=== PATIENT | male | born 1975 | race Caucasian/White ===

== ENCOUNTER 2017-06-28 10:08 | Emergency (ER) | payer MEDICAID ==
[~2017-06-28] VITALS: Ht 193 cm; Wt 120.5 kg
[~2017-06-28 10:08] MED LIST: NO HOME MEDICATIONS; ZYPREXA ZYDIS15 MG PO; ZYPREXA7.5 MG PO
[2017-06-28 10:16] VITALS: BP 126/73; PULSE 86; TEMP 99
[2017-06-28] MEDS ORDERED: ZESTRIL 20MG TA20 MG PO (10:41)
[2017-06-28] MEDS ORDERED: HCTZ12.5TAB PO (10:41)
[2017-06-28] MEDS ORDERED: ATARAX50 MG PO (10:41)
[2017-06-28] MEDS ORDERED: RISPERDAL3 MG PO (10:42)
[2017-06-28] MEDS ORDERED: ZYPREXA 5MG5 MG PO (10:42)
[2017-06-28] MEDS ORDERED: ZOCOR 40MG40 MG PO (10:42)
== END 2017-06-28 11:05 | disposition home or self-care (01) ==
LOC: COL.ER 10:08
DX: S92.525A Nondisplaced fracture of middle phalanx of left lesser toe(s), initial encounter for closed fracture (principal); F20.9 Schizophrenia, unspecified; W22.8XXA Striking against or struck by other objects, initial encounter

== ENCOUNTER 2017-07-10 15:10 | Emergency (ER) | payer MEDICAID ==
[~2017-07-10] VITALS: Ht 193 cm; Wt 127.3 kg
[~2017-07-10 15:10] MED LIST changes: +ATARAX50 MG PO; +HCTZ12.5TAB PO; +RISPERDAL3 MG PO; +ZESTRIL 20MG TA20 MG PO; +ZOCOR 40MG40 MG PO; +ZYPREXA 5MG5 MG PO
[2017-07-10 15:12] VITALS: BP 132/79; TEMP 97.5
[2017-07-10] MEDS ORDERED: MOBIC 7.5MG7.5 MG PO (15:59)
[2017-07-10] MEDS ORDERED: FLEXERIL 1010 MG/TAB PO (15:59)
[2017-07-10 16:24] VITALS: PULSE 80
== END 2017-07-10 16:25 | disposition home or self-care (01) ==
LOC: COL.ER 15:10
DX: S39.012A Strain of muscle, fascia and tendon of lower back, initial encounter (principal); I10 Essential (primary) hypertension; E78.5 Hyperlipidemia, unspecified; F20.9 Schizophrenia, unspecified; F17.290 Nicotine dependence, other tobacco product, uncomplicated; Z90.89 Acquired absence of other organs; X50.1XXA Overexertion from prolonged static or awkward postures, initial encounter
CPT/HCPCS: J1885

== ENCOUNTER 2017-11-21 14:32 | Emergency (ER) | payer MEDICARE, MEDICAID ==
[~2017-11-21 14:32] MED LIST changes: +FLEXERIL 1010 MG/TAB PO; +MOBIC 7.5MG7.5 MG PO
[2017-11-21 15:51] LABS: BASO % 0.3 % (0.0-2.0); GRAN # 6.9 (1.4-6.5); GRAN % 67.6 % (42.2-75.2); HEMATOCRIT 40.5 % (42.0-52.0); HEMOGLOBIN 12.8 g/dl (13.5-18.0); LYMPH # 2.5 (1.2-3.4); LYMPH % 24.8 % (20.0-51.0); MEAN CELL VOLUME 89 fl (80.0-100.0); MEAN CORPUSCULAR HEMOGLOBIN 28 pg (27.0-31.0); MEAN CORPUSCULAR HGB CONC 32 g/dl (33.0-37.0); MEAN PLATELET VOLUME 10.2 fl (7.4-10.4); MONO # 0.7 (0.1-0.6); MONO % 6.8 % (1.7-9.3); PLATELET COUNT 282 K/mm3 (130-400); RED BLOOD COUNT 4.53 M/mm3 (4.20-5.60)
[2017-11-21 16:05] LABS: ACETAMINOPHEN < 10 ug/mL (10-30); ALANINE AMINOTRANSFERASE 45 U/L (21-72); ALBUMIN 4.6 gm/dL (3.5-5.0); ALCOHOL(ethanol),MEDICAL < 10 mg/dL; ALKALINE PHOSPHATASE 125 U/L (50-136); ANION GAP 10 mmol/L (7-16); AST,SGOT 29 U/L (15-37); BILIRUBIN,TOTAL 0.3 mg/dL (0.0-1.0); BLOOD UREA NITROGEN 14 mg/dL (9-20); CALCIUM 9.6 mg/dL (8.4-10.2); CARBON DIOXIDE 28 mmol/L (22-30); CHLORIDE 103 mmol/L (98-107); CREATININE, serum 0.85 mg/dL (0.66-1.25); GLUCOSE 123 mg/dL (74-106); POTASSIUM 4.3 mmol/L (3.4-5.0); SALICYLATE < 1.0 mg/dL; SODIUM 142 mmol/L (137-145); TOTAL PROTEIN 7.9 gm/dL (6.4-8.2)
[2017-11-21 16:42] LABS: COLLECTION METHOD CLEAN CATCH
[2017-11-21 16:48] LABS: PH 5 (5-8); SQUAMOUS EPITHELIAL 0-2 /hpf; URINE APPEARANCE Clear; URINE BACTERIA None Seen /hpf; URINE BILIRUBIN Negative (NEGATIVE); URINE BLOOD Negative (NEGATIVE); URINE COLOR Yellow; URINE GLUCOSE Negative (NEGATIVE); URINE KETONE Negative (NEGATIVE); URINE LEUKOCYTE ESTERASE Negative (NEGATIVE); URINE NITRATE Negative (NEGATIVE); URINE PROTEIN(semi-quant) Negative (NEGATIVE); URINE RBC 0-2 /hpf; URINE UROBILINOGEN Negative (NEGATIVE)
[2017-11-21 17:14] LABS: TRICYCLIC ANTIDEPRESS URINE NEGATIVE
[2017-11-23 06:17] VITALS: TEMP 98.2
[2017-11-23 07:47] VITALS: BP 152/62
[2017-11-23 09:57] VITALS: PULSE 86
== END 2017-11-23 09:59 ==
LOC: COL.ER 14:32
PROVIDERS: Emergency Medicine
DX: F23 Brief psychotic disorder (principal); F32.9 Major depressive disorder, single episode, unspecified; I10 Essential (primary) hypertension; F41.9 Anxiety disorder, unspecified
CPT/HCPCS: A4216; J3486

== ENCOUNTER 2018-03-26 12:31 | Emergency (ER) | payer OTHER ==
[~2018-03-26] VITALS: Ht 193 cm; Wt 105.9 kg
[2018-03-26 12:35] VITALS: PULSE 87; TEMP 97.7
[2018-03-26 13:03] LABS: BASO % 0.4 % (0.0-2.0); GRAN # 4.7 (1.4-6.5); GRAN % 64.1 % (42.2-75.2); HEMATOCRIT 44.6 % (42.0-52.0); HEMOGLOBIN 13.9 g/dl (13.5-18.0); LYMPH % 26.9 % (20.0-51.0); MEAN CELL VOLUME 90 fl (80.0-100.0); MEAN CORPUSCULAR HEMOGLOBIN 28 pg (27.0-31.0); MEAN CORPUSCULAR HGB CONC 31 g/dl (33.0-37.0); MEAN PLATELET VOLUME 10.9 fl (7.4-10.4); MONO # 0.6 (0.1-0.6); MONO % 8.5 % (1.7-9.3); PLATELET COUNT 248 K/mm3 (130-400); RED BLOOD COUNT 4.98 M/mm3 (4.20-5.60); REDCELL DISTRIBUTION WIDTH-CV 15.4 % (11.5-14.5)
[2018-03-26 13:13] LABS: COLLECTION METHOD CLEAN CATCH
[2018-03-26 13:15] LABS: ACETAMINOPHEN < 10 ug/mL (10-30); ALANINE AMINOTRANSFERASE 37 U/L (21-72); ALBUMIN 4.2 gm/dL (3.5-5.0); ALCOHOL(ethanol),MEDICAL < 10 mg/dL; ALKALINE PHOSPHATASE 137 U/L (50-136); ANION GAP 8 mmol/L (7-16); AST,SGOT 28 U/L (15-37); BILIRUBIN,TOTAL 0.3 mg/dL (0.0-1.0); BLOOD UREA NITROGEN 12 mg/dL (9-20); CALCIUM 9.7 mg/dL (8.4-10.2); CARBON DIOXIDE 32 mmol/L (22-30); CHLORIDE 102 mmol/L (98-107); CREATININE, serum 0.85 mg/dL (0.66-1.25); GLUCOSE 132 mg/dL (74-106); POTASSIUM 4.1 mmol/L (3.4-5.0); SALICYLATE < 1.0 mg/dL; SODIUM 143 mmol/L (137-145); TOTAL PROTEIN 7.2 gm/dL (6.4-8.2)
[2018-03-26 13:27] LABS: MUCOUS Present /lpf; PH 5 (5-8); SQUAMOUS EPITHELIAL 0-2 /hpf; URINE APPEARANCE Clear; URINE BACTERIA Rare /hpf; URINE BILIRUBIN Positive (NEGATIVE); URINE BLOOD Negative (NEGATIVE); URINE COLOR Amber; URINE GLUCOSE Negative (NEGATIVE); URINE KETONE Trace (NEGATIVE); URINE LEUKOCYTE ESTERASE Negative (NEGATIVE); URINE NITRATE Negative (NEGATIVE); URINE PROTEIN(semi-quant) 2+ (NEGATIVE); URINE RBC 0-2 /hpf
[2018-03-26 13:41] LABS: TRICYCLIC ANTIDEPRESS URINE NEGATIVE
[2018-03-26 13:58] VITALS: BP 140/81
== END 2018-03-26 14:08 | disposition home or self-care (01) ==
LOC: COL.ER 12:31
PROVIDERS: Physician Assistant
DX: F20.9 Schizophrenia, unspecified (principal); Z91.14 Patient's other noncompliance with medication regimen